=== PATIENT | female | born 1970 | race Caucasian/White ===

== ENCOUNTER 2020-11-25 13:58 | Emergency (ER) | payer BC | END 2020-11-25 14:43 | disposition home or self-care (01) | LOC: JVIRT 13:58 | DX: U07.1 COVID-19 (principal) | CPT/HCPCS: C9803; G2012-GT; U0003 ==

== ENCOUNTER 2021-01-20 11:31 | Emergency (ER) | payer BC | END 2021-01-20 11:49 | disposition home or self-care (01) | LOC: JVIRT 11:31 | DX: Z20.822 Contact with and (suspected) exposure to COVID-19 (principal) | CPT/HCPCS: C9803; G2251-GT; U0003 ==